=== PATIENT | female | born 1960 ===

== ENCOUNTER → 2022-08-30 13:25 | Outpatient (BNVA) | payer OTHER, MEDICAID, SELFPAY | PROVIDERS: PCP Family Medicine; Visit Provider Anesthesiology | DX: Z13.89 Encounter for screening for other disorder (principal) ==

== ENCOUNTER 2023-01-30 07:07 | Outpatient (REF) | payer OTHER, MEDICAID, SELFPAY ==
--- NOTE | ~2023-01-30 | FL_ITS ---
EXAMINATION: XR FLUOROSCOPY WITH IMAGES CLINICAL INFORMATION: Post laminectomy syndrome, not elsewhere classified. COMPARISON: None available. TECHNIQUE: Fluoroscopy Supervised By: Dr. Rodriguez. Fluoroscopy Time: 0.0 minutes. Cumulative Dose: 2.19 mGy. DAP: 0.599 Gycm2. Images: 1. FINDINGS: Lateral image of the sacrum and coccyx demonstrates posterior probe projecting over the soft tissues adjacent to the lower sacrum/coccyx FL/FL guidance in treatment room IMPRESSION: Fluoroscopy guidance for pain management procedure
== END 2023-01-30 07:08 | disposition home or self-care (01) ==
LOC: CF 07:07
PROVIDERS: PCP Family Medicine; Visit Provider Anesthesiology
DX: M96.1 Postlaminectomy syndrome, not elsewhere classified (principal); L98.9 Disorder of the skin and subcutaneous tissue, unspecified
CPT/HCPCS: J3301; Q9967

== ENCOUNTER → 2023-02-12 12:57 | Outpatient (BNVA) | payer OTHER, MEDICAID, SELFPAY | PROVIDERS: PCP Family Medicine; Visit Provider Anesthesiology | DX: L98.9 Disorder of the skin and subcutaneous tissue, unspecified (principal) | CPT/HCPCS: 99211 ==

== ENCOUNTER 2023-02-20 06:03 | Outpatient (REF) | payer OTHER, MEDICAID, SELFPAY ==
--- NOTE | ~2023-02-20 | FL_ITS ---
EXAMINATION: XR FLUOROSCOPY WITH IMAGES CLINICAL INFORMATION: Postlaminectomy syndrome, not elsewhere classified. COMPARISON: None available. TECHNIQUE: Fluoroscopy Supervised By: Dr. Ziyad Rodriguez. Fluoroscopy Time: 0.2 minutes. Cumulative Dose: 3.98 mGy. DAP: 0.0666 Gycm2. Images: 4. FINDINGS: Images demonstrate needle placement and epidural contrast injection of the sacrum. There were postsurgical changes to the lower lumbar spine with surgical hardware. FL/FL guidance in treatment room IMPRESSION: Fluoroscopic guidance for pain management procedure.
== END 2023-02-20 06:04 | disposition home or self-care (01) ==
LOC: CF 06:03
PROVIDERS: Visit Provider Anesthesiology
DX: M96.1 Postlaminectomy syndrome, not elsewhere classified (principal); G89.4 Chronic pain syndrome
CPT/HCPCS: 62323; J3301; Q9967

== ENCOUNTER 2023-02-20 07:58 | Outpatient (AMB) | payer OTHER, MEDICAID, SELFPAY ==
[2023-02-20 08:05] VITALS: BP 118/68; PULSE 88; RESP 14; O2SAT 97; BMI 24.5
--- NOTE | 2023-02-20 08:05 | MHC.OFFVIS ---
Intake Vital Signs 02/20/23 08:05 02/20/23 10:06 Height 5 ft 2 in 5 ft 2 in Weight 134 lb 134 lb BMI 24.5 24.5 BP 118/68 124/62 Blood Pressure Location Rt brachial Rt brachial Position Sitting Sitting Respiration 14 16 Pulse 88 90 Pulse Source Pulse Oximeter Pulse Oximeter Pulse Oximetry (%) 97 96 Oxygen Delivery Method Room Air Room Air Comment Pre-Op Post-op Intake Visit Reasons: CAUDAL TIERRA WITH CATHETER Allergies No Known Allergies Allergy (Verified 02/20/23 08:06) PFSH Medical History Abnormal cervical Papanicolaou smear Allergic rhinitis Benign essential hypertension Chronic pain Low back pain Major depression, melancholic type Mixed hyperlipidemia Persistent insomnia Tobacco user Physical Exam Vital Signs: Last Vital Signs Pulse 90 02/20/23 10:06 Resp 16 02/20/23 10:06 BP 124/62 02/20/23 10:06 Pulse Ox 96 02/20/23 10:06 Oxygen Delivery Method Room Air 02/20/23 10:06 BMI result Body Mass Index 24.5 Results Reviewed Results Reviewed: 02/20/23 08:50 Lidocaine HCl 2 % MPF [Xylocaine 2 % MPF] 5 ml .ROUTE .STK-MED ONE Triamcinolone Acetonide [Kenalog-40] 40 mg .ROUTE .STK-MED ONE iohexoL 300 MG/ML [Omnipaque 300 MG/ML] 100 ml .ROUTE .STK-MED ONE Assessment & Plan Assessment & Plan (1) Postlaminectomy syndrome: Code(s): M96.1 - Postlaminectomy syndrome, not elsewhere classified Plan: Caudal TIERRA with catheter. Informed consent was explained to the patient. All questions were explained and answered. The patient was taken inside of the operating room where she was positioned prone on the operating table. Time-out was performed delineating patient's name and date of , correct site, side, the nature of the procedure, patient's allergy, All operating room staff and the patient were participating in OR time-out procedure. the patient's lower back buttock and intragluteal crease were prepped with ChloraPrep and draped with sterile utility draped. C-arm was brought over the operating field and sq picture of sacral bone was delineated on the screen. the target of needle insertion was chosen as a caudal hiatus. The projection of the caudal hiatus to the skin was chosen as point of local anesthetic injection. 2% lidocaine 3 mls were injected into the skin. After that 18 G Tuohy needle was inserted through the skin and under intermittent AP and lateral guide was advanced into the sacral hiatus and into the caudal canal . injection of the contrast demonstrated epidural spread of the contrast. After that 22 g epidual catheter was advanced into the epidural space until the resistance was met and the injection of the contrast was performed again. The injection of the contrast was delineating epidural space at the L5-S1 intervale in the proximity of her lumbar hardware. After that injection of 30 mls of normal saline was performed into the catheter. Following this injection of the lidocaine 1% PF mixed with kenalog 40 mg was performed with the catheter. The needle and the catheter were removed en mass, the tip of the catheter was intact. Sterile bandaid was applied.The patient tolerated the procedure very well. Orders: Orders FL guidance in treatment room 02/20/23 G89.4 - Chronic pain syndrome, M96.1 - Postlaminectomy syndrome, not elsewhere classified Coding Level of Care Code Procedure Only Diagnoses Postlaminectomy syndrome M96.1
[2023-02-20 10:06] VITALS: BP 124/62; PULSE 90; RESP 16; O2SAT 96; BMI 24.5
== END 2023-02-20 09:29 | disposition home or self-care (01) ==
PROVIDERS: PCP Family Medicine; Visit Provider Anesthesiology
DX: M96.1 Postlaminectomy syndrome, not elsewhere classified (principal)
CPT/HCPCS: 62323

== ENCOUNTER 2023-03-19 13:34 | Outpatient (AMB) | payer OTHER, MEDICAID, SELFPAY ==
[2023-03-19 13:41] VITALS: BP 144/76; PULSE 88; RESP 18; O2SAT 97; BMI 22.6
--- NOTE | 2023-03-19 13:41 | A.OFFVIS_ITS ---
Intake Vital Signs 03/19/23 13:41 Height 5 ft 2 in Weight 123 lb 8 oz BMI 22.6 BP 144/76 H Blood Pressure Location Lt brachial Position Sitting Respiration 18 Pulse 88 Pulse Source Pulse Oximeter Pulse Oximetry (%) 97 Oxygen Delivery Method Room Air Intake Visit Reasons: CAUDAL TIERRA WITH CATHETER/02/20/23 Allergies No Known Allergies Allergy (Verified 03/19/23 13:42) HPI HPI Comments History of Present Illness Details Tressa is back in my office after caudal epidural steroid injections she received on 02/20/2023. She reports significant pain relief after the procedure. She reports better mobility better activities of daily living better social interactions. While she does not report pain improvement more than 50% she states that she was able after the injection to perform a lot of activities she forgot about. She was able to do gardening and cooking with minimal pain aggravation. She would like to continue the injections. She would like to schedule next injection in May. I will schedule her for the procedure on 05/23/2023. She wants to procedure to be done under sedation because it is very painful for her to receive this procedure without sedation. She is on large doses of the opioid medications and she obviously developed opioid induced hyperalgesia. She also has [employer] SCS and we need to contact Andrew to introduce DTM protocol into her spinal cord stimulator. Prior: very pleasant 62 years old female who presents in my office with complains on pain in the lower back radiating into the bilateral lower extremities on the anterior as well as on the posterior surfaces of the bilateral lower extremities all the way to her feet but not into her toes.? 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 Through the years she received multiple injections to treat her pain.? She discovered with spondylolisthesis L4 on L5.? She was sent to? have L4-5 posterior fusion.? The pain was not significantly affected by her surgery after her surgery she again received some injections some of those were done with [facility].? She was offered [employer] spinal cord stimulator which helps her moderately especially with the pain in bilateral lower extremities.? She reports however that the weather changes aggravate her pain and the than spinal cord stimulator does not help.? She unable to sleep normally because of her pain she cannot do activities of daily living she cannot function normally but she may be able to care for herself.? She is retired individual on permanent disability.? Weather changes in movements aggravates her pain oral medications alleviate her pain she is currently on coresopradol 0350 mg gabapentin in 300 mg 2 tablets today twice a day oxycodone 10 mg 4 times a day and OxyContin 10 mg 4 times a day she is also taking sertraline which could be considered as the secondary pain helpful medication.? She also takes naproxen 500 mg twice a day and she is on diazepam 5 mg 1 tablet as needed.? She received multiple sessions of physical therapy she received multiple images in the past she is the typical patient of postlaminectomy syndrome.? Epidural steroid injections were done for her with [facility], however recently her workman's comp refused to pay for the injections and [facility] had to terminate their services for the patient. [facility] Medical History Abnormal cervical Papanicolaou smear Allergic rhinitis Benign essential hypertension Chronic pain Low back pain Major depression, melancholic type Mixed hyperlipidemia Persistent insomnia Tobacco user Review of Systems Const All systems reviewed & are unremarkable except as noted in HPI and below Neuro Denies Abnormal speech present Physical Exam Const General: acute distress Nutritional Appearance: underweight Orientation/consciousness: patient oriented x3 Resp Effort & Inspection: normal respiratory effort, able to speak in complete sentences and normal respiratory pattern Cardio Jugular venous distension: no JVD Back/Spine/Pelvis Thoracic/Lumbar Spine: Lasegue's sign negative, straight leg raise negative bilaterally, pain with thoraco-lumbar ROM, paraspinal muscle tenderness, lumbar spinal tenderness and straight leg raise positive Neuro General: patient oriented x3 Speech: No Abnormal speech present Extrem General: Yes normal to inspection and Yes full ROM Psych Appearance: grossly normal Mental Status: mental status grossly normal Speech and movement: Normal speech and movement present Affect: normal affect Attitude: cooperative Thought process: Normal thought process present Assessment & Plan Assessment & Plan (1) Postlaminectomy syndrome: Code(s): M96.1 - Postlaminectomy syndrome, not elsewhere classified (2) Chronic pain syndrome: Code(s): G89.4 - Chronic pain syndrome (3) S/P insertion of spinal cord stimulator: Code(s): Z96.89 - Presence of other specified functional implants Plan This patient is interested in continuation of the caudal epidural steroid injection. I told her that I will repeat this injection under sedation if she is willing to consider this. Next injection would be done on the after 05/23/2023. We will contact Andrew to help her to install DM and her currently not functioning [employer] SCS. The procedure for the follow-up will be scheduled after the procedure in the operating room. Coding Level of Care Code Est Pt Level 4 (53583) Diagnoses Postlaminectomy syndrome M96.1 Chronic pain syndrome G89.4 S/P insertion of spinal cord stimulator Z96.89
== END 2023-03-19 13:56 | disposition home or self-care (01) ==
PROVIDERS: PCP Family Medicine; Visit Provider Anesthesiology
DX: M96.1 Postlaminectomy syndrome, not elsewhere classified (principal); G89.4 Chronic pain syndrome; Z96.89 Presence of other specified functional implants
CPT/HCPCS: 99213

== ENCOUNTER → 2023-03-19 13:34 | Outpatient (BNVA) | payer OTHER, MEDICAID, SELFPAY | PROVIDERS: PCP Family Medicine; Visit Provider Anesthesiology | DX: M96.1 Postlaminectomy syndrome, not elsewhere classified (principal); G89.4 Chronic pain syndrome; Z96.82 Presence of neurostimulator | CPT/HCPCS: 99212 ==

== ENCOUNTER 2023-05-24 10:16 | Day surgery (SDC) | payer OTHER, SELFPAY ==
[2023-05-22 08:05] VITALS: BMI 22.5
--- NOTE | 2023-05-23 09:57 | P.CONAN_ITS ---
Documented by User: Evonne Cline NP 05/23/23 10:00 HPI - Anesthesia Eval Consult details Narrative: 62yo F for Caudal Epidural Steroid Injection with catheter PMFSH Active Problems Active Problems: All Active Problems (Updated 08/30/22 @ 14:36 by Ziyad Rodriguez MD) S/P insertion of spinal cord stimulator (Acute) Chronic pain syndrome (Acute) Postlaminectomy syndrome (Acute) Past Medical History Medical History Abnormal cervical Papanicolaou smear Low back pain Allergic rhinitis Benign essential hypertension Chronic pain Major depression, melancholic type Persistent insomnia Tobacco user Mixed hyperlipidemia Social History Social History Patient Tobacco Use Status: Current everyday Tobacco user Tobacco use type: Cigarette Cigarette Packs Per Day: 1.5 Cigarettes Per Day: 30.0 Meds Allergies Allergy/AdvReac Type Severity Reaction Status Date / Time No Known Allergies Allergy Verified 03/19/23 13:42 Home Medications Medication Instructions Recorded Confirmed Last Taken Type amlodipine 10 mg tablet 10 mg PO DAILY 08/30/22 02/12/23 Unknown History diazepam 5 mg tablet 5 mg PO BEDTIME PRN 08/30/22 02/12/23 Unknown History gabapentin 600 mg tablet 600 mg PO BID 08/30/22 02/12/23 Unknown History labetalol 200 mg tablet 200 mg PO BID 08/30/22 02/12/23 Unknown History oxycodone 10 mg tablet,extended mg PO 08/30/22 02/12/23 Unknown History release,12 hr trazodone 100 mg tablet 100 mg PO BID 08/30/22 02/12/23 Unknown History betamethasone, augmented 0.05 % appl topical 02/20/23 Unknown History topical cream carisoprodol 350 mg tablet 0 mg PO 02/20/23 Unknown History fluticasone propionate 50 spray intranasal 02/20/23 Unknown History mcg/actuation nasal spray,suspension gabapentin 300 mg capsule mg PO 02/20/23 Unknown History lisinopril 20 mg tablet 20 mg PO DAILY 02/20/23 Unknown History naproxen 500 mg tablet 500 mg PO BID 02/20/23 Unknown History oxycodone 10 mg tablet,crush 20 mg PO BID 02/20/23 Unknown History resistant,extended release 12 hr sertraline 100 mg tablet 150 mg PO DAILY 02/20/23 Unknown History Exam Exam Date and Time: May 23, 2023 0957 Height,Weight and Vital Signs: Height 5 ft 2 in Weight 55.792 kg Assessment and Plan Assessment Anesthesia Assessment: Chart Reviewed Documented by User: Misty Cho MD 05/24/23 12:29 PMFSH Active Problems Active Problems: All Active Problems (Updated 05/24/23 @ 11:25 by Misty Cho MD) S/P insertion of spinal cord stimulator (Acute) Chronic pain syndrome (Acute) Postlaminectomy syndrome (Acute) Tremors of hands/ fidgety- denies ETOH use Wet cough- states allergies, intermittent. S/t with red eyes, stuffy nose. Does sound stuffy but has face mask on. Denies recent fever, malaise Denies FRANCINE Smoker- last cigarette just before arrival Diazepam 10mg this morning Marijuana gummies last night Past Medical History Medical History Abnormal cervical Papanicolaou smear Low back pain Allergic rhinitis Benign essential hypertension Chronic pain Major depression, melancholic type Persistent insomnia Tobacco user Mixed hyperlipidemia Family History Family history of problems with anesthesia: No Surgical History History of Problems with Anesthesia: No Social History Social History Patient Tobacco Use Status: Current everyday Tobacco user Tobacco use type: Cigarette Cigarette Packs Per Day: 1.5 Cigarettes Per Day: 30.0 Meds Allergies Allergy/AdvReac Type Severity Reaction Status Date / Time No Known Allergies Allergy Verified 03/19/23 13:42 Home Medications Medication Instructions Recorded Confirmed Last Taken Type amlodipine 10 mg tablet 10 mg PO DAILY 08/30/22 02/12/23 Unknown History diazepam 5 mg tablet 5 mg PO BEDTIME PRN 08/30/22 02/12/23 Unknown History gabapentin 600 mg tablet 600 mg PO BID 08/30/22 02/12/23 Unknown History labetalol 200 mg tablet 200 mg PO BID 08/30/22 02/12/23 Unknown History oxycodone 10 mg tablet,extended mg PO 08/30/22 02/12/23 Unknown History release,12 hr trazodone 100 mg tablet 100 mg PO BID 08/30/22 02/12/23 Unknown History betamethasone, augmented 0.05 % appl topical 02/20/23 Unknown History topical cream carisoprodol 350 mg tablet 0 mg PO 02/20/23 Unknown History fluticasone propionate 50 spray intranasal 02/20/23 Unknown History mcg/actuation nasal spray,suspension gabapentin 300 mg capsule mg PO 02/20/23 Unknown History lisinopril 20 mg tablet 20 mg PO DAILY 02/20/23 Unknown History naproxen 500 mg tablet 500 mg PO BID 02/20/23 Unknown History oxycodone 10 mg tablet,crush 20 mg PO BID 02/20/23 Unknown History resistant,extended release 12 hr sertraline 100 mg tablet 150 mg PO DAILY 02/20/23 Unknown History Exam Height,Weight and Vital Signs: Height 5 ft 2 in Weight 55.792 kg Vital Signs Temp Pulse Resp BP Pulse Ox O2 Del Method 05/24/23 10:48 97.8 F 91 18 159/64 H 97 Room Air Airway Mallampati Class: II (Large tongue) TM Dist: >3cm Neck ROM: Full Partial: Upper and Lower Loose/Missing/Broken Teeth: Yes (Some broken teeth) Heart: RRR Lungs: CTAB. No wheezing.Has had albuterol treatment Assessment and Plan Assessment Anesthesia Assessment: Anesthesia Plan Discussed Final Anesthetic Review Family History of Problems with Anesthesia: No History of Problems with Anesthesia: No NPO: Yes ASA Class: III Final Preanesthetic Review: No Changes in Pt Med Stat, Meds/Allgs Chart Rev iewed, Consent Obtained/Reviewed and Anes Risks/Benef Reviewed Patient Risk: Intermediate Procedure Risk: Low Assessment/Block/Sedation in SS: Assess/Block/Sedation-SS Anesthetic Plan Anesthetic Plan: MAC: Disposition: Standard PACU
--- NOTE | ~2023-05-24 | FL_ITS ---
EXAMINATION: XR FLUOROSCOPY WITH IMAGES CLINICAL INFORMATION: Caudal epidural injection. COMPARISON: None available. TECHNIQUE: Fluoroscopy Supervised By: Dr. Ziyad Rodriguez. Fluoroscopy Time: 0.2 minutes. Cumulative Dose: 2.64 mGy. DAP: 0.0458 Gycm2. Images: 2. FINDINGS: Images demonstrate needle and contrast opacification of the epidural space in the sacrum FL/FL guidance in OR IMPRESSION: Fluoroscopy guidance for pain management procedure
[2023-05-24 10:48] VITALS: BP 159/64; PULSE 91; RESP 18; TEMP 36.6; O2SAT 97
[2023-05-24] MEDS: Albuterol Sulfate (0.083%) 2.5 MG/3 ML VIAL.NEB INHALE (11:02)
[2023-05-24] MEDS: Lactated Ringers 1,000 ML 100 ML IVCONT (11:03)
--- NOTE | 2023-05-24 11:16 | MHC.SHP ---
Pre-Procedural Eval Section A Date of Service: 05/24/23 The patient is an INPATIENT: No Changes since office visit: Yes Patient answered all questions The History & Physical has been completed within 30 days and I have reviewed it.: No Section B Chief Complaint: Postlaminectomy syndrome,chronic pain Details of Present Illness: as above Relevant Family History (Specify if Yes): No Relevant Social History: None Present Medications: see Short Stay Collaborative assessment Medical History: No relevant PMH History of Previous Operations: Relevant previous surgery/procedure and date(s) Allergies: Allergies Allergy/AdvReac Type Severity Reaction Status Date / Time No Known Allergies Allergy Verified 03/19/23 13:42 Review of Systems Sugical H&P ROS: Negative: Constitution, Cardiovascular, Neurological, Psychiatric, Hem-Onc, Allergic/Immunologic, Gastrointestinal, Genitourinary, Integumentary, Endocrine and Eyes/Ears/Nose/Throat and Yes, Specify: Respiratory (COPD) and Musculoskeletal (postlaminectomy syndrome) Exam Surgical H&P Exam: Normal: HEENT, Normal: Heart, Normal: Lungs, Normal: Extremities, Normal: Abdomen, Normal: Skin and Normal: Neurological Plan Diagnosis/Plan: Unchanged I have reviewed the history and physical and performed a pertinent physical examination on my patient. No changes have occurred unless specified. Time Spent With Patient Time: Total time managing care of this patient today _5___ minutes.
--- NOTE | 2023-05-24 12:24 | P.BOP_ITS ---
Brief Operative Note Date of Service: 05/24/23 Pre-op diagnosis: postlaminectomy syndrome Post-op diagnosis: same Procedure: caudal epidural steroid injection with catheter Surgeon: Ziyad Rodriguez MD Anesthesia: MAC Was an Show Operations Supervisor used for this Procedure?: No Estimated blood loss (mL): 0 Condition: stable Disposition: PACU
--- NOTE | 2023-05-24 12:25 | P.OP_ITS ---
Operative Note Operative Note Date of Service: 05/24/23 Narrative: caudal epidural steroid injection with catheter. Informed consent was explained to the patient. All questions were explained and answered. The patient was taken inside of the operating room where she was positioned Prone on operating table.. Time-out was performed delineating patient's name and date of , correct site, side, the nature of the procedure, patient's allergy, preoperative antibiotic if needed, need for VT prophylaxis.. All operating room staff was participating in OR time-out procedure. time-out was performed, [place] [employer] monitors were applied and patient was deeply sedated. The lower back upper buttocks and intergluteal crease were prepped with ChloraPrep and draped with sterile little T towels. C-arm was brought of the operating field and picture of patient's pelvis was demonstrated on the screen. The symphysis pubis was superimposed on midline sacral bone. The sacral hiatus was chosen as the target of the injection. To cm below the level of the sacral hiatus 18 gauge 10 cm Touhy needle was inserted through the skin wheal which was previously raised with 1% lidocaine. The needle advanced to were the sacral hiatus and caudal canal under intermittent anterior posterior and lateral views. When needle entered the sacral canal injection of the contrast was performed demonstrating epidural space. After that 22 gauge plastic catheter was inserted through the needle and was advanced into caudal canal and ventrally into the lumbar epidural space approximately at S1 projection. Injection of the contrast was performed demonstrating contrast in the anterior epidural space. After that 30 mL of preservative-free normal saline was injected into the catheter. After that lidocaine preservative-free 1% mixed with Kenalog 40 mg was injected into the catheter. Upon completion of this injection the needle was withdrawn with catheter en mass, the tip of the catheter is intact. The dressing 4 x 4 with bacitracinwas applied to the area of the needle insertion, the patient was awaken, taken outside to the operating room to recovery room where she recovered uneventfully.
[2023-05-24 12:32] VITALS: BP 109/73; PULSE 93; RESP 16; TEMP 36.4; O2SAT 96
[2023-05-24 12:47] VITALS: BP 135/86; PULSE 93; RESP 14; O2SAT 96
[2023-05-24 13:02] VITALS: BP 149/89; PULSE 94; RESP 16; O2SAT 97
== END 2023-05-24 13:17 | disposition home or self-care (01) ==
PROVIDERS: PCP Family Medicine; Visit Provider Anesthesiology
PROC: 3E0R3GC Introduction of Other Therapeutic Substance into Spinal Canal, Percutaneous Approach (ICD-10-PCS; CPT 62322; principal; 2023-05-24 12:00)
DX: M96.1 Postlaminectomy syndrome, not elsewhere classified (principal); G89.4 Chronic pain syndrome; M54.50 Low back pain, unspecified; Z96.89 Presence of other specified functional implants; Z79.891 Long term (current) use of opiate analgesic; I10 Essential (primary) hypertension; E78.2 Mixed hyperlipidemia; J30.9 Allergic rhinitis, unspecified; G47.09 Other insomnia; F33.8 Other recurrent depressive disorders; Z79.51 Long term (current) use of inhaled steroids; Z79.899 Other long term (current) drug therapy; F17.210 Nicotine dependence, cigarettes, uncomplicated
CPT/HCPCS: 62323; J3301; Q9967

== ENCOUNTER → 2023-05-24 10:16 | Outpatient (BNV) | payer OTHER, SELFPAY | PROVIDERS: PCP Family Medicine; Visit Provider Anesthesiology | DX: M96.1 Postlaminectomy syndrome, not elsewhere classified (principal) | CPT/HCPCS: 62323 ==

== ENCOUNTER 2023-06-25 10:47 | Outpatient (AMB) | payer OTHER, SELFPAY ==
--- NOTE | 2023-06-25 10:48 | A.OFFVIS_ITS ---
Intake Vital Signs 3 06/25/23 10:50 Height 5 ft 2 in Weight 114 lb BMI 20.8 Intake Visit Reasons: s/p Caudal TIERRA 05/24/23/confirmed Intake Note: Pain today 05/15 [employer] Leak [employer]ester Required: No Accompanied by: Spouse Allergies No Known Allergies Allergy (Verified 06/25/23 10:50) HPI HPI Comments 2 History of Present Illness0 Details Patient presents today to assess response to Caudal TIERRA steroid injection on 05/24/[address] Rodriguez. Patient reports significant pain improvement in the first 2 weeks after injection over 60% pain relief but due to cold weather changes she reports return of increase pain in her legs with associated weakness. She has arrived in wheelchair and is accompanied by her . Patient has been suffering for chronic low back pain and post laminectomy syndrome with back pain radiating to both of her lower extremities more posteriorly. She has [employer] SCS device in place with multiple recent adjustments without significant symptom relief. Patient reports her back and leg pain always increases during winter months and she is hoping to repeat same injection in the month of August 2023 as this allows her to be less symptomatic and more functional. We will proceed with updating her thoracic and lumbar spine xrays prior to any further interventional treatments. Patient denies any fever, abdominal or groin pain, bladder or bowel dysfunction or saddle anesthesia. PRIOR Dr. Rodriguez 03/19/23: Tressa is back in my office after caudal epidural steroid injections she received on 02/20/2023. She reports significant pain relief after the procedure. She reports better mobility better activities of daily living better social interactions. While she does not report pain improvement more than 50% she states that she was able after the injection to perform a lot of activities she forgot about. She was able to do gardening and cooking with minimal pain aggravation. She would like to continue the injections. She would like to schedule next injection in May. I will schedule her for the procedure on 05/23/2023. She wants to procedure to be done under sedation because it is very painful for her to receive this procedure without sedation. She is on large doses of the opioid medications and she obviously developed opioid induced hyperalgesia. She also has [employer] SCS and we need to contact Andrew to introduce DTM protocol into her spinal cord stimulator. Prior: very pleasant 62 years old female who presents in my office with complains on pain in the lower back radiating into the bilateral lower extremities on the anterior as well as on the posterior surfaces of the bilateral lower extremities all the way to her feet but not into her toes.? 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 Through the years she received multiple injections to treat her pain.? She discovered with spondylolisthesis L4 on L5.? She was sent to? have L4-5 posterior fusion.? The pain was not significantly affected by her surgery after her surgery she again received some injections some of those were done with [facility].? She was offered Medtronic spinal cord stimulator which helps her moderately especially with the pain in bilateral lower extremities.? She reports however that the weather changes aggravate her pain and the than spinal cord stimulator does not help.? She unable to sleep normally because of her pain she cannot do activities of daily living she cannot function normally but she may be able to care for herself.? She is retired individual on permanent disability.? Weather changes in movements aggravates her pain oral medications alleviate her pain she is currently on coresopradol 0350 mg gabapentin in 300 mg 2 tablets today twice a day oxycodone 10 mg 4 times a day and OxyContin 10 mg 4 times a day she is also taking sertraline which could be considered as the secondary pain helpful medication.? She also takes naproxen 500 mg twice a day and she is on diazepam 5 mg 1 tablet as needed.? She received multiple sessions of physical therapy she received multiple images in the past she is the typical patient of postlaminectomy syndrome.? Epidural steroid injections were done for her with [facility], however recently her workman's comp refused to pay for the injections and [facility] had to terminate their services for the patient. [facility] Medical History Abnormal cervical Papanicolaou smear Low back pain Allergic rhinitis Benign essential hypertension Chronic pain Major depression, melancholic type Persistent insomnia Tobacco user Mixed hyperlipidemia Social History Patient Tobacco Use Status: Current everyday Tobacco user Tobacco use type: Cigarette Cigarette Packs Per Day: 1.5 Cigarettes Per Day: 30.0 Review of Systems Const All systems reviewed & are unremarkable except as noted in HPI and below Neuro Denies Abnormal speech present and Denies confusion Psych Denies confusion Physical Exam Vital Signs: BMI result Body Mass Index 20.8 Const General: cooperative, alert, awake and acute distress; No confusion Nutritional Appearance: underweight Orientation/consciousness: patient oriented x3 and No confusion Limitations: wheelchair and other limitations (hard of hearing) HEENT Head: Yes normocephalic and Yes atraumatic Resp Effort & Inspection: normal respiratory effort, able to speak in complete sentences, no audible wheezes, no cough and symmetric chest movement Cardio Jugular venous distension: no JVD Back/Spine/Pelvis Cervical Spine: cervical muscular tenderness and No Cervical spine tenderness Thoracic/Lumbar Spine: Thoracic/lumbar spine scar(s), Lasegue's sign negative, straight leg raise negative bilaterally, pain with thoraco-lumbar ROM, paraspinal muscle tenderness, thoraco-lumbar ROM limited, Thoracic/lumbar scoliosis, No thoracic spinal tenderness, lumbar spinal tenderness at L4 and at L5 and straight leg raise positive Neuro General: patient oriented x3 and No confusion Speech: No Abnormal speech present Extrem General: Yes normal to inspection and Yes full ROM Psych Appearance: grossly normal Mental Status: mental status grossly normal Speech and movement: Normal speech and movement present and Clear speech present Affect: normal affect Attitude: cooperative Thought process: Normal thought process present Thought content: Normal thought content present Insight: Good insight present (Psych) Judgement: Good judgement present (Psych) Results Reviewed Results Reviewed: Assessment & Plan Assessment & Plan (1) Chronic pain syndrome: Code(s): G89.4 - Chronic pain syndrome (2) Postlaminectomy syndrome: Code(s): M96.1 - Postlaminectomy syndrome, not elsewhere classified (3) S/P insertion of spinal cord stimulator: Code(s): Z96.89 - Presence of other specified functional implants Plan Patient is status post repeat caudal epidural steroid injection on 05/24/23 with partial pain improvement due to arrival of cold weather. She is interested to continue these injections under sedation as it allows her to be less symptomatic and more functional. We will update her thoracic and lumbar spine xray to assess SCS status as well as any new degenerative changes. She had multiple program adjustments for her Medtronic SCS device with no symptom improvement. Next injection would be done on the after 08/24/23 if not significant changes on xray imaging. All questions and concerns have been answered and patient agreed with the plan. Follow up for xray results and sooner as needed. Orders: Orders 2 XR lumbar spine 4V min Today G89.4 - Chronic pain syndrome, M96.1 - Postlaminectomy syndrome, not elsewhere classified, Z96.89 - Presence of other specified functional implants XR thoracic spine 2V Today G89.4 - Chronic pain syndrome, Z96.89 - Presence of other specified functional implants Coding Level of Care Code Est Pt Level 4 (91642) Diagnoses Chronic pain syndrome G89.4 Postlaminectomy syndrome M96.1 S/P insertion of spinal cord stimulator Z96.89
[2023-06-25 10:50] VITALS: BMI 20.8
== END 2023-06-25 11:01 | disposition home or self-care (01) ==
PROVIDERS: PCP Family Medicine; Visit Provider Nurse Practitioner Family
DX: G89.4 Chronic pain syndrome (principal); M96.1 Postlaminectomy syndrome, not elsewhere classified; Z96.89 Presence of other specified functional implants
CPT/HCPCS: 99214

== ENCOUNTER → 2023-06-25 10:47 | Outpatient (BNVA) | payer OTHER, SELFPAY | PROVIDERS: PCP Family Medicine; Visit Provider Nurse Practitioner Family | DX: M96.1 Postlaminectomy syndrome, not elsewhere classified (principal); G89.4 Chronic pain syndrome; Z96.89 Presence of other specified functional implants; Z98.890 Other specified postprocedural states | CPT/HCPCS: 99212 ==